=== PATIENT | male | born 1995 | race Caucasian/White ===

== ENCOUNTER 2019-08-22 18:40 | Emergency (ER) | payer OTHER, SELFPAY ==
[2019-08-22 18:43] VITALS: BP 152/97; PULSE 86; RESP 15; TEMP 37.5; O2SAT 99; BMI 31.1
[2019-08-22 18:45] VITALS: BP 152/97; PULSE 86; RESP 15; TEMP 37.5; O2SAT 99
[2019-08-22] MEDS: Clindamycin HCl 150 MG Capsule 300 MG PO (19:34)
--- NOTE | 2019-08-22 20:17 | ED.VIS.GEN ---
History of Present Illness Chief Complaint: Abscess Detail of Chief Complaint: Pilonidal cyst Informant: Patient Onset: Days - 10 days Context: Gradual Onset Timing: Waxes and wanes Current Severity: Moderate Maximum Severity: Moderate Narrative: Patient presents with recurrent pilonidal cyst. He has had this previously. About a week and a half ago he said he got some fevers and chills with it. He was able to get it to drain spontaneously several different times over the past week. Today he noted it was more red and indurated so came in for evaluation. Past Medical History - Allergies and Home Meds Allergies/Adverse Reactions: Allergies No Known Allergies Allergy (Verified 08/22/19 18:41) Primary Care Physician: Care Physician,No Primary [Primary Care Provider] - Prior records reviewed: Yes Past Medical History: None Lives: Spouse/ Significant Other Smoking Status: Never smoker Review of Systems General: Reports: Fever - Early in course of illness Eyes: Denies: Visual changes - bilaterally ENT: Denies: Bilateral ear pain Cardiovascular: Denies: Chest pain Respiratory: Denies: Dyspnea Gastrointestinal: Denies: Abdominal pain, Nausea, Vomiting, Diarrhea Musculoskeletal: Denies: Extremity Pain Skin: Reports: Abscess Neurological: Denies: Headache Allergy: Denies: Uticaria Physical Exam Vital Signs/Narrative: Vital Signs Temp Pulse Resp BP Pulse Ox 08/22/19 18:45 99.5 F H 86 15 152/97 H 99 08/22/19 18:43 99.5 F H 86 15 152/97 H 99 Inital Vital Signs reviewed: Yes General: Well nourished, Well developed Head: Normocephalic ENT: Moist mucous membranes Neck: Supple Cardiovascular: Regular rate, Regular rhythm Respiratory: No distress, CTA bilaterally Abdomen: Soft, Nontender Rectal: - - Pilonidal cyst with surrounding induration measuring approximately 6 x 3 cm. Mild serosanguineous drainage. Neurological: Alert, Oriented x3 Psychological: Normal affect Diagnostic/Tx/Re-eval - Medical Decision Making Patient is given a dose of clindamycin. Wound was anesthetized with 1 cc 1% lidocaine. Incision was made with a #11 blade. There is return of blood but no pus. I am able to open the wound with curved hemostats. He does have 1 tract that travels fairly deep. Wound was cleansed and packed with quarter inch iodoform gauze. He will remove the gauze in 3 days. He is referred to Dr. Nam for follow-up. ED Disposition - Plan for ED Patient: Disposition: Home or Assisted Living Diagnosis: Pilonidal cyst Instructions: PILONIDAL CYST, Infected (Incision and Drainage) Prescriptions: Clindamycin [Cleocin] 300 mg PO 4X/DAY #80 cap Transmission Status: Pending to [id number] Referrals: Lito Nam MD [STAFF PHYSICIAN] - As Needed
[2019-08-22 20:24] VITALS: RESP 18
== END 2019-08-22 20:24 | disposition home or self-care (01) ==
PROVIDERS: Emergency Provider Emergency Medicine
DX: L05.91 Pilonidal cyst without abscess (principal)
CPT/HCPCS: 10080; 99283

== ENCOUNTER → 2023-12-04 | Outpatient (CLI) | payer OTHER, SELFPAY ==
[2023-12-04 07:36] LABS: Absolute Lymphocyte Count 2.04 X10^3/uL (0.83-4.51); Absolute Neutrophil Count 2.1 X10^3/uL (2.0-7.7); Basophil# 0.02 X10^3/uL; Basophil% 0.4 % (0-1); Eosinophil# 0.09 X10^3/uL; Eosinophils% 1.9 % (0-5); Hematocrit 43.6 % (40-54); Hemoglobin 14.6 g/dL (13.0-16.5); Lymphocyte # 2.04 X10^3/ul (0.83-4.51); Lymphocyte % 44.2 % (19-41); Mean Corp Hgb Conc 33.5 g/dL (32-36); Mean Corpuscular Hgb 27.1 pg (27.0-32.0); Mean Platelet Vol. 9.5 fl (6.2-12.0); Monocyte# 0.42 X10^3/uL; Monocyte% 9.1 % (0-10); NRBC Flagged by Analyzer 0 % (0-5); Neutrophil # 2.05 X10^3/uL (2.7-7.7); Neutrophil % 44.4 % (47-70); Platelet Count 205 K/mm3 (150-450); RBC Distribution Width CV 12.4 % (11.6-14.6); Red Blood Count 5.38 M/mm3 (4.6-6.2); White Blood Count 4.6 K/mm3 (4.4-11.0)
[2023-12-04 08:24] LABS: ALB/GLOB Ratio 1.3 RATIO (0.9-2.4); AST(SGOT) 26 U/L (15-37); Alanine Aminotransfer ALT/SGPT 29 U/L (16-61); Albumin, Serum 4.1 g/dL (3.2-5.0); Alkaline Phosphatase 73 U/L (45-117); Anion Gap 2 (5-15); BUN 15 mg/dL (7-18); BUN/Creat Ratio 12.8 RATIO (10-20); Calcium,Total 8.8 mg/dL (8.5-10.1); Chloride 104 mmol/L (98-107); Cholesterol 172 mg/dL (200); Creatinine, Serum 1.17 mg/dL (0.70-1.30); EST Glomerular Filtration Rate 78 mL/min (>60); Est Glom Filt Rate - Afr Amer 94 mL/min (>60); Globulin 3.1 g/dL (2.2-4.2); Glucose 91 mg/dL (74-106); High Density Lipoprotein 45 mg/dL; Protein, Total 7.2 g/dL (6.4-8.2); Sodium Level 136 mmol/L (136-145); Thyroid Stim Hormone (TSH) 2.14 uIU/mL (0.358-3.74); Triglycerides 139 mg/dL; Very Low Density Lipoprotein 28 mg/dL (5-40)
== END | disposition home or self-care (01) ==
LOC: LAB 07:06
DX: Z13.220 Encounter for screening for lipoid disorders (principal); Z13.1 Encounter for screening for diabetes mellitus; R53.83 Other fatigue
CPT/HCPCS: 36415; 80053; 80061; 84443; 85025

== ENCOUNTER → 2025-04-28 | Outpatient (CLI) | payer OTHER, SELFPAY ==
--- OUTSIDE RECORDS SUMMARY | 2025-04-28 06:34 | XMS RPT_ITS | CCD ---
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, [address] Absolute Neut 2.0 X10 3/uL Normal 2.0-7.7 [facility] Comment on above: Order Comment: SEND ALL TO Performed By: #### L 500.2900, L400.0100, L100.0200 #### [facility] [address] [place], [address] Basophils/100 WBC (Bld) 0.6 % Normal 0-1 [facility] Comment on above: Order Comment: SEND ALL TO Performed By: #### L 500.2900, L400.0100, L100.0200 #### [facility] [address] [place], [address] Eosinophils/100 WBC (Bld) 1.5 % Normal 0-5 [facility] Comment on above: Order Comment: SEND ALL TO Performed By: #### L 500.2900, L400.0100, L100.0200 #### [facility] [address] [place], [address] Erythrocyte distribution width (RBC) [Ratio] 12.4 % Normal 11.6-14.6 [facility] Comment on above: Order Comment: SEND ALL TO Performed By: #### L 500.2900, L400.0100, L100.0200 #### [facility] [address] [place], [address] Hematocrit (Bld) [Volume fraction] 43.0 % Normal 40-54 [facility] Comment on above: Order Comment: SEND ALL TO Performed By: #### L 500.2900, L400.0100, L100.0200 #### [facility] [address] [place], [address] Hemoglobin (Bld) [Mass/Vol] 14.9 g/dL Normal 13.0-16.5 [facility] Comment on above: Order Comment: SEND ALL TO Performed By: #### L 500.2900, L400.0100, L100.0200 #### [facility] [address] [place], [address] Lymphocytes/100 WBC (Bld) 51.3 % High 19-41 [facility] Comment on above: Order Comment: SEND ALL TO Performed By: #### L 500.2900, L400.0100, L100.0200 #### [facility] [address] [place], [address] MCH (RBC) [Entitic mass] 27.6 pg Normal 27.0-32.0 [facility] Comment on above: Order Comment: SEND ALL TO Performed By: #### L 500.2900, L400.0100, L100.0200 #### [facility] [address] [place], [address] MCHC (RBC) [Mass/Vol] 34.7 g/dL Normal 32-36 [facility] Comment on above: Order Comment: SEND ALL TO Performed By: #### L 500.2900, L400.0100, L100.0200 #### [facility] [address] [place], [address] MCV (RBC) [Entitic vol] 79.6 fL Low 80-94 [facility] Comment on above: Order Comment: SEND ALL TO Performed By: #### L 500.2900, L400.0100, L100.0200 #### [facility] [address] [place], [address] Monocytes/100 WBC (Bld) 9.0 % Normal 0-10 [facility] Comment on above: Order Comment: SEND ALL TO Performed By: #### L 500.2900, L400.0100, L100.0200 #### [facility] [address] [place], [address] Neutrophils/100 WBC (Bld) 37.4 % Low 47-70 [facility] Comment on above: Order Comment: SEND ALL TO Performed By: #### L 500.2900, L400.0100, L100.0200 #### [facility] [address] [place], [address] NRBC # 0.00 10 3/uL Normal 0-5 [facility] Comment on above: Order Comment: SEND ALL TO Performed By: #### L 500.2900, L400.0100, L100.0200 #### [facility] [address] [place], [address] Nucleated RBC (Bld) [#/Vol] 0 10*3/uL Normal 0-5 [facility] Comment on above: Order Comment: SEND ALL TO Performed By: #### L 500.2900, L400.0100, L100.0200 #### [facility] [address] [place], [address] Platelet mean volume (Bld) [Entitic vol] 9.2 fL Normal 6.2-12.0 [facility] Comment on above: Order Comment: SEND ALL TO Performed By: #### L 500.2900, L400.0100, L100.0200 #### [facility] [address] [place], [address] Platelets (Bld) [#/Vol] 223 10*3/uL Normal 150-450 [facility] Comment on above: Order Comment: SEND ALL TO Performed By: #### L 500.2900, L400.0100, L100.0200 #### [facility] [address] [place], [address] RBC (Bld) [#/Vol] 5.40 10*6/uL Normal 4.6-6.2 [facility] Comment on above: Order Comment: SEND ALL TO Performed By: #### L 500.2900, L400.0100, L100.0200 #### [facility] [address] [place], [address] RDW SD 35.4 fl Normal 35.1-43.9 [facility] Comment on above: Order Comment: SEND ALL TO Performed By: #### L 500.2900, L400.0100, L100.0200 #### [facility] [address] [place], [address] WBC (Bld) [#/Vol] 5.3 10*3/uL Normal 4.4-11.0 [facility] Comment on above: Order Comment: SEND ALL TO Performed By: #### L 500.2900, L400.0100, L100.0200 #### [facility] [address] [place], [address] Employee Profileon 5 LDH 201 U/L Normal 87-241 [facility] Comment on above: Order Comment: SEND ALL TO Performed By: #### L 500.2900, L400.0100, L100.0200 #### [facility] [address] [place], [address] Phosphate [Mass/Vol] 4.2 mg/dL Normal 2.7-4.5 [facility] Comment on above: Order Comment: SEND ALL TO Performed By: #### L 500.2900, L400.0100, L100.0200 #### [facility] [address] [place], [address] URIC 6.0 mg/dL Normal 3.5-7.2 [facility] Comment on above: Order Comment: SEND ALL TO Result Comment: The drugs N-Acetylcysteine and Metamizole may falsely depress this assay. Performed By: #### L 500.2900, L400.0100, L100.0200 #### [facility] [address] [place], [address] Urinalysis, Employeeon 03-20 BILIRUBIN URINE Normal Negative [facility] Comment on above: Order Comment: SEND ALL TO Urine, Random Result Comment: NOT WANTED Performed By: #### L 500.2900, L400.0100, L100.0200 #### [facility] [address] [place], [address] Clarity (U) Normal Clear [facility] Comment on above: Order Comment: SEND ALL TO Urine, Random Result Comment: NOT WANTED Performed By: #### L 500.2900, L400.0100, L100.0200 #### [facility] [address] [place], [address] Color (U) Normal Yellow [facility] Comment on above: Order Comment: SEND ALL TO DR.ROMAR Alicia, Random Result Comment: NOT WANTED Performed By: #### L 500.2900, L400.0100, L100.0200 #### [facility] [address] [place], [address] GLUCOSE, UR Normal Normal [facility] Comment on above: Order Comment: SEND ALL TO DR.ROMAR Alicia, Random Result Comment: NOT WANTED Performed By: #### L 500.2900, L400.0100, L100.0200 #### [facility] [address] [place], [address] KETONE UR Normal Negative [facility] Comment on above: Order Comment: SEND ALL TO DR.ROMAR Alicia, Random Result Comment: NOT WANTED Performed By: #### L 500.2900, L400.0100, L100.0200 #### [facility] [address] [place], [address] LEUK ESTERASE Normal Negative [facility] Comment on above: Order Comment: SEND ALL TO DR.ROMAR Alicia, Random Result Comment: NOT WANTED Performed By: #### L 500.2900, L400.0100, L100.0200 #### [facility] [address] [place], [address] Nitrite Ql (U) Normal Negative [facility] Comment on above: Order Comment: SEND ALL TO DR.ROMAR Alicia, Random Result Comment: NOT WANTED Performed By: #### L 500.2900, L400.0100, L100.0200 #### [facility] [address] [place], [address] OCCULT BLOOD-UR Normal Negative [facility] Comment on above: Order Comment: SEND ALL TO DR.ROMAR Alicia, Random Result Comment: NOT WANTED Performed By: #### L 500.2900, L400.0100, L100.0200 #### [facility] [address] [place], [address] pH UR Normal 5.0 - 8.0 [facility] Comment on above: Order Comment: SEND ALL TO DR.ROMAR Alicia, Random Result Comment: NOT WANTED Performed By: #### L 500.2900, L400.0100, L100.0200 #### [facility] [address] [place], [address] PROT DIPSTX Normal Negative [facility] Comment on above: Order Comment: SEND ALL TO DR.ROMAR Alicia, Random Result Comment: NOT WANTED Performed By: #### L 500.2900, L400.0100, L100.0200 #### [facility] [address] [place], [address] SP.GR. DIPSTX Normal 1.002-1.030 [facility] Comment on above: Order Comment: SEND ALL TO DR.ROMAR Alicia, Random Result Comment: NOT WANTED Performed By: #### L 500.2900, L400.0100, L100.0200 #### [facility] [address] [place], [address] UR Preservative Normal [facility] Comment on above: Order Comment: SEND ALL TO DR.ROMAR Alicia, Random Result Comment: NOT WANTED Performed By: #### L 500.2900, L400.0100, L100.0200 #### [facility] [address] [place], [address] UROBILI Normal Normal [facility] Comment on above: Order Comment: SEND ALL TO DR.ROMAR Alicia, Random Result Comment: NOT WANTED Performed By: #### L 500.2900, L400.0100, L100.0200 #### [facility] [address] [place], [address] CN[facility]auline [facility]-20[id number] MAMEKODY Porsha ([id number]) 1995 M Date Time Provider Department 05/13/21 NIYAH PEREZ [id number] During your visit today, we recorded the following information about you: Niyah Perez MD 05/13/2021 1:49 PM Signed Called patient to discuss his labs. AST elevated at 93. He reports having 1-2 alcoholic beverages ~5 days per. Encouraged reducing alcohol consumption and rechecking labs. Pt agreeable. Niyah Perez MD Allergies As of Date: 05/13/2021 (No Known Allergies) Date Reviewed: 04/25/2021 Reviewed by: Niyah Perez MD - Fully Assessed Reason for Visit: Results [95] Primary Visit Diagnosis:Elevated LFTs [R79.89] Order(s):COMP METABOLIC PANEL [SQCMP] Order #: [id number] FUTURE Meds Comments as of 05/01/2008: No current meds, reviewed 05/01/2008. Loli Gaston LPN No current medications as of today's visit.December 21, 2006 Tamy Barry [facility] Problem List As Of Date 05/13/2021 Noted Resolved Pilonidal cyst [L05.91] 04/24/2021 04/25/2021 Encounter Status:Closed by NIYAH PEREZ on 05/13/21 Normal [facility] COMPMETAon 05-07-2021 Albumin/Globulin [Mass ratio] 1.4 {ratio} Normal [facility] Comment on above: Performed By: #### 1 [id number], [id number] #### [facility] [address] [id number] [employer] Superintendent: Ulisses Modi MD GFR AA >[address] [facility] Comment on above: Result Comment: Afri can [place] GFR Calc Medical judgement is necessary to interpret GFR. The calculated GFR may not accurately reflect renal status in patients >70 years, women, acutely ill hospitalized patients and patients with acute renal failure or known renal disease. The MDRD GFR formula is valid only for adults greater than 18 years of age. Note: Creatinine clearance (not GFR) should be used for drug dosing. Performed By: #### 1 90261, [id number] #### [facility] [address] [place] [address] [employer] Superintendent: Ulisses Modi MD Glomerular Filtration Rate >[address] [facility] Comment on above: Result Comment: Non GFR Calc Medical judgement is necessary to interpret GFR. The calculated GFR may not accurately reflect renal status in patients >70 years, women, acutely ill hospitalized patients and patients with acute renal failure or known renal disease. The MDRD GFR formula is valid only for adults greater than 18 years of age. Note: Creatinine clearance (not GFR) should be used for drug dosing. Performed By: #### 1 38268, [id number] #### [facility] [address] [place] [address] [employer] Superintendent: Ulisses Modi MD Osmolality [Osmolality] 284 mosm/kg Normal 275-295 [facility] Comment on above: Performed By: #### 1 81291, [id number] #### [facility] [address] [place] [address] [employer] Superintendent: Ulisses Modi MD Urea nitrogen/Creatinine [Mass ratio] 15.6 mg/mg Normal [facility] Comment on above: Performed By: #### 1 34745, [id number] #### [facility] [address] [place] [address] [employer] Superintendent: Ulisses Modi MD Albumin [Mass/Vol] 4.2 g/dL Normal 3.4-5.0 [place] Comment on above: Performed By: #### 1 50983, [id number] #### [facility] [address] [place] [address] [employer] Superintendent: Ulisses Modi MD Alk Phos 96 unit/L Normal 45-117 [facility] Comment on above: Performed By: #### 1 22060, [id number] #### [facility] [address] [place] [address] [employer] Superintendent: Ulisses Modi MD Bilirubin [Mass/Vol] 0.60 mg/dL Normal 0.20-1.00 [facility] Comment on above: Result Comment: Use of this assay is not recommended for patients undergoing treatment with eltrombopag due to the potential for falsely elevated results. Performed By: #### 1 69155, [id number] #### [facility] [address] [place] [address] [employer] Superintendent: Ulisses Modi MD Calcium [Mass/Vol] 9.2 mg/dL Normal 8.5-10.5 [place] Comment on above: Performed By: #### 1 27618, [id number] #### [facility] [address] [address] [employer] Superintendent: Ulisses Modi MD Chloride [Moles/Vol] 107 mmol/L Normal 100-109 [facility] Comment on above: Performed By: #### 1 93258, [id number] #### [facility] [address] [place] [address] [employer] Superintendent: Ulisses Modi MD CO2 [Moles/Vol] 28.9 mmol/L Normal 21.0-32.0 [facility] Comment on above: Performed By: #### 1 20298, [id number] #### [facility] [address] [place] [address] [employer] Superintendent: Ulisses Modi MD Creatinine [Mass/Vol] 1.1 mg/dL Normal 0.7-1.3 [facility] Comment on above: Performed By: #### 1 85274, [id number] #### [facility] [address] [place] [address] [employer] Superintendent: Ulisses Modi MD Globulin (S) [Mass/Vol] 3.1 g/dL Normal [facility] Comment on above: Performed By: #### 1 61838, [id number] #### [facility] [address] [place] [address] [employer] Superintendent: Ulisses Modi MD Glucose [Mass/Vol] 89 mg/dL Normal 72-100 [place] Comment on above: Result Comment: Joi puncture should occur prior to sulfasalazine administration due to the potential for falsely depressed results. Venipuncture should occur prior to sulfapyridine administration due to the potential falsely elevated results. Baseline assay values before administration of sulfasalazine and sulfapyridine therapy would not be affected. Performed By: #### 1 71401, [id number] #### [facility] [address] [place] [address] [employer] Superintendent: Ulisses Modi MD GOT 93 unit/L High 15-37 [facility] Comment on above: Result Comment: Joi puncture should occur prior to sulfasalazine and/or sulfapyridine administration due to the potential for falsely depressed results. Baseline assay values before administration of sulfasalazine and sulfapyridine therapy would not be affected. Performed By: #### 1 02211, [id number] #### [facility] [address] [place] [address] [employer] Superintendent: Ulisses Modi MD GPT 41 unit/L Normal 16-61 [facility] Comment on above: Result Comment: Joi puncture should occur prior to sulfasalazine and/or sulfapyridine administration due to the potential for falsely depressed results. Baseline assay values before administration of sulfasalazine and sulfapyridine therapy would not be affected. Performed By: #### 1 91560, [id number] #### [facility] [address] [place] [address] [employer] Superintendent: Ulisses Modi MD Potassium [Moles/Vol] 4.2 mmol/L Normal 3.5-5.1 [facility] Comment on above: Performed By: #### 1 21068, [id number] #### [facility] [address] [place] [address] [employer] Superintendent: Ulisses Modi MD Protein [Mass/Vol] 7.3 g/dL Normal 6.0-8.5 [place] Comment on above: Performed By: #### 1 70380, [id number] #### [facility] [address] [place] [address] [employer] Superintendent: Ulisses Modi MD Sodium [Moles/Vol] 142 mmol/L Normal 135-145 [place] Comment on above: Performed By: #### 1 30289, [id number] #### [facility] [address] [place] [address] [employer] Superintendent: Ulisses Modi MD Urea nitrogen [Mass/Vol] 17 mg/dL Normal 10-20 [facility] Comment on above: Performed By: #### 1 86370, [id number] #### [facility] [address] [place] [address] [employer] Superintendent: Ulisses Modi MD HGB A1Con 05-07-2021 HbA1c (Bld) [Mass fraction] 5.1 % Normal [facility] Comment on above: Result Comment: Refe rence Range: Diabetic Greater than or equal to 6.5 % Prediabetic 5.7?6.4 % Normal Less than 5.7 % Performed By: #### 1 19123 #### [facility] [address] [place] [address] [employer] Superintendent: Ulisses Modi MD LIPID PNLon 05-07-2021 Calculated LDL Cholesterol 86 mg/dL Normal 60-130 [facility] Comment on above: Result Comment: <100 mg/dl Optimal 100-129 mg/dl Near Optimal 130-159 mg/dl Borderline High 160-189 mg/dl High >=190 mg/dl Very High Performed By: #### 1 18478, [id number] #### [facility] [address] [place] [address] [employer] Superintendent: Ulisses Modi MD Total Chol/HDL Chol Ratio 4.[address] [facility] Comment on above: Performed By: #### 1 59525, [id number] #### [facility] [address] [place] [address] [employer] Superintendent: Ulisses Modi MD Cholesterol [Mass/Vol] 161 mg/dL Normal 100-200 [facility] Comment on above: Result Comment: <200 mg/dl Desirable 200-239 mg/dl Borderline High >= 240 mg/dl High Performed By: #### 1 80310, [id number] #### [facility] [address] [place] [address] [employer] Superintendent: Ulisses Modi MD Cholesterol in HDL [Mass/Vol] 38 mg/dL Low 40-60 [facility] Comment on above: Performed By: #### 1 07745, [id number] #### [facility] [address] [place] [address] [employer] Superintendent: Ulisses Modi MD Triglyceride [Mass/Vol] 184 mg/dL High 30-150 [facility] Comment on above: Performed By: #### 1 78950, [id number] #### [facility] [address] [place] [address] [employer] Superintendent: Ulisses Modi MD Encounters Encounter Date Encounter Type Care Provider Facility Start: 03-20-2025 [facility] Facility:[facility] Start: 03-23-2018 End: 03-23-2018 Patient encounter UNKNOWN PROVIDER Facility:[facility] Payers Date Payer Category Payer Self-pay Unknown [id number] Progress note 04-25-2021 Note Date & Type Note Facility 04-25-2021 Note HNO ID: [id number] Author: Niyah Perez MD Service: ? Author Type: Physician Type: Progress Notes Filed: 04/25/2021 2:35 PM Note Text: Subjective Patient presents to establish care and for an annual physical. Medical, surgical, and family hx were discussed and updated. No acute concerns. Exercises regularly. Eats home cooked meals. Fruits and veggies. Review of Systems Constitutional: Negative for appetite change, chills, fever and unexpected weight change. HENT: Negative for congestion, sinus pressure, sinus pain and sneezing. Respiratory: Negative for apnea, cough, chest tightness and wheezing. Cardiovascular: Negative for chest pain, palpitations and leg swelling. Gastrointestinal: Negative for abdominal pain, diarrhea, nausea and vomiting. Musculoskeletal: Negative for back pain, neck pain and neck stiffness. Neurological: Negative for tremors, weakness and numbness. Current Medications: No prescriptions on file. Objective BP 110/82 Pulse 78 Temp 97.6 Resp 17 Ht 6' 1.5" (1.87m) Wt 236 lb (107.0kg) SpO2 97% BMI 30.71 kg/(m2). Physical Exam Vitals reviewed. Constitutional: General: He is not in acute distress. Appearance: He is well-developed. He is not diaphoretic. HENT: Head: Normocephalic and atraumatic. Right Ear: Tympanic membrane, ear canal and external ear normal. There is no impacted cerumen. Left Ear: Tympanic membrane, ear canal and external ear normal. There is no impacted cerumen. Eyes: General: No scleral icterus. Right eye: No discharge. Left eye: No discharge. Conjunctiva/sclera: Conjunctivae normal. Cardiovascular: Rate and Rhythm: Normal rate and regular rhythm. Heart sounds: No murmur heard. No friction rub. No gallop. Pulmonary: Effort: Pulmonary effort is normal. No respiratory distress. Breath sounds: Normal breath sounds. No stridor. No wheezing or rales. Abdominal: General: Bowel sounds are normal. There is no distension. Palpations: Abdomen is soft. There is no mass. Tenderness: There is no abdominal tenderness. There is no guarding or rebound. Musculoskeletal: General: No deformity. Cervical back: No tenderness. Right lower leg: No edema. Left lower leg: No edema. Lymphadenopathy: Cervical: No cervical adenopathy. Skin: General: Skin is warm. Findings: No erythema or rash. Neurological: Mental Status: He is alert and oriented to person, place, and time. ASSESSMENT/PLAN: 1. Routine physical examination - ICD9: V70.0, ICD10: Z00.00 (primary diagnosis) - Recommended regular aerobic exercise. - Discussed need and benefit for weight loss. BMI 30.71 kg/(m2) - Vaccination(s) recommended today: Tdap - Follow up for annual exam in one year. 2. Screening for hyperlipidemia - ICD9: V77.91, ICD10: Z13.220 - LIPID PANEL BASIC 3. Screening for diabetes mellitus - ICD9: V77.1, ICD10: Z13.1 - COMP METABOLIC PANEL - HGB A1C Niyah Perez MD Health Maintenance due: DTAP,TDAP,TD(5 - Td or Tdap)- Will get tetanus shot through work and send the record. Follow-up: Return in about 1 year (around 04/25/2022) for annual physical. [facility] Summary Purpose Family History No Family History Records FoundNo Family History Records FoundNo Family History Records FoundNo Family History Records Found Advance Directives No Advanced Directives Records FoundNo Advanced Directives Records FoundNo Advanced Directives Records FoundNo Advanced Directives Records Found Additional Source Comments (unrecognized sect ion and content) No Status Records FoundNo Status Records FoundNo Status Records FoundNo Status Records Found INFORMATION SOURCE (unrecogn ized section and content) DATE CREATED AUTHOR 04/25/2018 [employer] [facility] DATE CREATED AUTHOR AUTHOR'S ORGANIZ ATION 05/08/2021 [facility] DATE CREATED AUTHOR AUTHOR'S ORGANIZ ATION 08/24/2021 [facility] DATE CREATED AUTHOR AUTHOR'S ORGANIZ ATION 03/20/2025 [facility] FOR RECORDS PERTAINING TO PATIENTS WHO ARE OR HAVE BEEN ENROLLED IN A CHEMICAL DEPENDENCY/SUBSTANCEABUSE PROGRAM, SOME INFORMATION MAY BE OMITTED. This clinical summary was aggregated from multiple sources. Caution should be exercised in using it in the provision of clinical care. This summary normalizes information from multiple sources, and as a consequence, information in this document may materially change the coding, format and clinical context of patient data. In addition, data may be omitted in some cases. CLINICAL DECISIONS SHOULD BE BASED ON THE PRIMARY CLINICAL RECORDS. [employer] provides no warranty or guarantee of the accuracy or completeness of information in this document.
[2025-04-28 08:06] LABS: HIV Nonreactive (Nonreactive); Hepatitis C Antibody Nonreactive (Nonreactive)
[2025-04-28 08:34] LABS: Barbiturate Urine NEGATIVE (< 200 ng/mL); Benzodiazepine Urine NEGATIVE (< 200 ng/mL); PCP Urine NEGATIVE (< 25 ng/mL); THC Urine NEGATIVE (< 50 ng/mL)
[2025-04-29 14:08] LABS: HCV Quant. RNA PCR HCV Not Detected IU/mL (.)
== END | disposition home or self-care (01) ==
PROVIDERS: PCP Student in an Organized Health Care Education/Training Program; Referring Provider Student in an Organized Health Care Education/Training Program; Visit Provider Student in an Organized Health Care Education/Training Program
DX: Z00.00 Encounter for general adult medical examination without abnormal findings (principal); Z11.4 Encounter for screening for human immunodeficiency virus [HIV]; Z11.59 Encounter for screening for other viral diseases
CPT/HCPCS: 36415; 80307; 86703; 86803; 87522